=== PATIENT | male | born 1985 | race Caucasian/White ===

== ENCOUNTER → 2017-02-24 | Outpatient (CLI) | payer OTHER ==
--- NOTE | 2017-02-25 08:11 | RAD ---
Indication: Pain and bump plantar lateral foot. Technique: 3 images of the left foot are provided. BB was placed at the area of concern. Findings: There is no fracture or dislocation. There is no osseous lesion. There is no radiopaque foreign body. There may be minimal soft tissue swelling at the area of concern marked by BB in the plantar soft tissues. Impression: Minimal soft tissue swelling.
== END | disposition home or self-care (01) ==
LOC: PMG 11:52
PROVIDERS: ATTEND General Practice
DX: M79.5 Residual foreign body in soft tissue (principal); M79.89 Other specified soft tissue disorders
CPT/HCPCS: 73620